=== PATIENT | female | born 1955 | race Caucasian/White ===

== ENCOUNTER 2018-04-21 15:31 | Emergency (ER) | payer OTHER ==
[2018-04-21 15:46] VITALS: BP 163/91
[2018-04-21] MEDS ORDERED: Sodium Chloride 0.9% 10 ML Syringe FLUSH PRN (16:02)
[2018-04-21] MEDS ORDERED: Famotidine 20 MG/2 ML SDV IVPUSH ONE (16:03)
[2018-04-21] MEDS ORDERED: Alum Hydrox/Mag Hydrox/Simeth 30 ML, Lidocaine 2% 15 ML PO ONE ×2 (16:03)
--- NOTE | 2018-04-21 18:37 | EDM.PDOC ---
ED HPI GENERAL MEDICAL PROBLEM - General Chief Complaint: Chest Pain Stated Complaint: CHEST PAIN Time Seen by Provider: 04/21/18 15:42 Source of Information: Reports: Patient History Limitations: Reports: No Limitations - History of Present Illness INITIAL COMMENTS - FREE TEXT/NARRATIVE: The patient presents with burning across her chest. This started at 1330 today. It is better but not quiet gone. She has no shortness of breath. This did happen Saturday but it went away. She has a history of reflux and hiatal hernia. She is on a PPI. She did not miss a dose or eat anything that would have made it worse. She has no history of heart disease. She has high cholesterol. She has no fever, chills, cough, abdominal pain or nausea. Onset: Gradual Duration: Hour(s): Location: Reports: Chest Quality: Reports: Burning Severity: Moderate Improves with: Reports: None Worsens with: Reports: None Associated Symptoms: Reports: Chest Pain. Denies: Fever/Chills, Headaches, Nausea/Vomiting, Shortness of Breath Chest Pain Score (Numeric/FACES): 6 - Related Data Allergies Allergy/AdvReac Type Severity Reaction Status Date / Time No Known Allergies Allergy Verified 04/21/18 15:40 Home Meds: Home Meds Rosuvastatin [Crestor] 10 mg PO BEDTIME 12/21/13 [History] Sertraline HCl 50 mg PO DAILY 12/21/13 [History] Multivitamin/Iron/Folic Acid [Centrum Complete Multivit] 1 tab PO DAILY [History] Ubidecarenone [Coq-10] 200 mg PO DAILY 02/04/15 [History] Aspirin [Adult Low Dose Aspirin EC] 81 mg PO DAILY 04/21/18 [History] Calcium Carbonate/Vitamin D3 [Caltrate 600 Plus D3 Tablet] 1 tab PO DAILY [History] Cholecalciferol (Vitamin D3) [Vitamin D3] 1,000 units PO DAILY 04/21/18 [History ] Pantoprazole Sodium 40 mg PO DAILY 04/21/18 [History] Past Medical History Cardiovascular History: Reports: High Cholesterol Gastrointestinal History: Reports: GERD - Past Surgical History Other HEENT Surgeries/Procedures: septoplasty Social & Family History - Tobacco Use Smoking Status *Q: Current Every Day Smoker Years of Tobacco use: 40 Packs/Tins Daily: 1 - Recreational Drug Use Recreational Drug Use: No ED ROS GENERAL - Review of Systems Review Of Systems: See Below Constitutional: Reports: No Symptoms HEENT: Reports: No Symptoms Respiratory: Reports: No Symptoms Cardiovascular: Reports: Chest Pain (Burning accross his chest) Endocrine: Reports: No Symptoms GI/Abdominal: Reports: No Symptoms : Reports: No Symptoms Musculoskeletal: Reports: No Symptoms ED EXAM, GENERAL - Physical Exam Exam: See Below Exam Limited By: No Limitations General Appearance: Alert, No Apparent Distress Ears: Normal External Exam Nose: Normal Inspection Head: Atraumatic, Normocephalic Neck: Normal Inspection Respiratory/Chest: No Respiratory Distress, Lungs Clear, Normal Breath Sounds Cardiovascular: Regular Rate, Rhythm, No Edema, No Murmur GI/Abdominal: Soft, Non-Tender, No Organomegaly, No Mass Back Exam: Normal Inspection Extremities: Normal Inspection Neurological: Alert, Oriented, No Motor/Sensory Deficits EKG INTERPRETATION EKG Date: 04/21/18 Time: 15:39 Rhythm: NSR Rate (Beats/Min): 96 [place]: Normal P-Wave: Present QRS: Normal ST-T: Normal QT: Normal Course - Vital Signs Last Recorded V/S: Last Vital Signs Temp 97.6 F 04/21/18 15:40 Pulse 94 04/21/18 15:40 Resp BP 163/91 H 04/21/18 15:40 Pulse Ox 96 04/21/18 15:40 - Orders/Labs/Meds Orders: Active Orders 24 hr Category Date Time Status Cardiac Monitoring [RC] . DIRECTED Care 04/21/18 16:02 Active EKG Documentation Completion [RC] STAT Care 04/21/18 16:03 Active Peripheral IV Care [RC] . DIRECTED Care 04/21/18 16:03 Active Chest 1V Frontal [CR] Stat Exams 04/21/18 16:03 Taken TROPONIN I [CHEM] Stat Lab 04/21/18 18:21 Ordered Sodium Chloride 0.9% [Saline Flush] Med 04/21/18 16:02 Active 10 ml FLUSH ASDIRECTED PRN Peripheral IV Insertion Adult [OM.PC] Stat Oth 04/21/18 16:02 Ordered Medication Orders Sodium Chloride (Saline Flush) 10 ml FLUSH ASDIRECTED PRN PRN Reason: Keep Vein Open Last Admin: 04/21/18 16:14 Dose: 10 ml Labs: Laboratory Tests 04/21/18 04/21/18 Range/Units 15:45 15:45 WBC 9.72 (3.98-10.04) K/mm3 RBC 5.08 (3.98-5.22) M/mm3 Hgb 14.5 (11.2-15.7) gm/L Hct 43.7 (34.1-44.9) % MCV 86.0 (79.4-94.8) fl MCH 28.5 (25.6-32.2) pg MCHC 33.2 (32.2-35.5) g/dl RDW Std Deviation 43.9 (36.4-46.3) fL Plt Count 266 (182-369) K/mm3 MPV 10.4 (9.4-12.3) fl Neut % (Auto) 64.4 (34.0-71.1) % Lymph % (Auto) 25.1 (19.3-51.7) % [place] % (Auto) 9.6 (4.7-12.5) % Eos % (Auto) 0.5 L (0.7-5.8) Baso % (Auto) 0.2 (0.1-1.2) % Neut # (Auto) 6.26 H (1.56-6.13) K/mm3 Lymph # (Auto) 2.44 (1.18-3.74) K/mm3 [place] # (Auto) 0.93 H (0.24-0.36) K/mm3 Eos # (Auto) 0.05 (0.04-0.36) K/mm3 Baso # (Auto) 0.02 (0.01-0.08) K/mm3 Sodium 143 (136-145) mEq/L Potassium 3.5 (3.5-5.1) mEq/L Chloride 105 (98-107) mEq/L Carbon Dioxide 24 (21-32) mEq/L Anion Gap 17.5 H (5-15) BUN 11 (7-18) mg/dL Creatinine 0.7 (0.55-1.02) mg/dL Est Cr Clr Drug Dosing 61.27 mL/min Estimated GFR (MDRD) > 60 (>60) mL/min BUN/Creatinine Ratio 15.7 (14-18) Glucose 98 (80-115) mg/dL Calcium 9.8 (8.5-10.1) mg/dL Total Bilirubin 0.3 (0.2-1.0) mg/dL AST 19 (15-37) U/L ALT 22 (14-59) U/L Alkaline Phosphatase 85 (46-116) U/L Troponin I < 0.017 (0.00-0.056) ng/mL Total Protein 8.1 (6.4-8.2) g/dl Albumin 4.2 (3.4-5.0) g/dl Globulin 3.9 gm/dL Albumin/Globulin Ratio 1.1 (1-2) Meds: Medications Generic Name Dose Route Start Last Admin Trade Name Freq PRN Reason Stop Dose Admin Sodium Chloride 10 ml 04/21/18 16:02 04/21/18 16:14 Saline Flush FLUSH 10 ml ASDIRECTED PRN Administration Keep Vein Open Discontinued Medications Generic Name Dose Route Start Last Admin Trade Name Freq PRN Reason Stop Dose Admin Al Hydroxide/Mg Hydroxide 30 0 ml 04/21/18 16:03 04/21/18 16:13 ml/ Lidocaine HCl 15 ml PO 04/21/18 16:04 45 ml ONETIME ONE Administration Famotidine 20 mg 04/21/18 16:03 04/21/18 16:14 Pepcid IVPUSH 04/21/18 16:04 20 mg ONETIME ONE Administration - Re-Assessments/Exams Free Text/Narrative Re-Assessment/Exam: 04/21/18 18:38 I ordered an IV saline lock, pepcid 20mg IV, GI cocktail, EKG, CXR and labs. Her EKG shows a NSR with no acute changes. Her CXR looks good. Her CBC and CMP look good. Her troponin is negative. She feels much better. I will have her take some pepcid for a few days. I am doing a repeat troponin. Departure - Departure Time of Disposition: 18:40 Disposition: Home, Self-Care 01 Condition: Good Clinical Impression: Atypical chest pain GERD (gastroesophageal reflux disease) Qualifiers: Esophagitis presence: without esophagitis Qualified Code(s): K21.9 - Gastro- esophageal reflux disease without esophagitis Referrals: PCP,Unknown [Primary Care Provider] - Additional Instructions: Take pepcid daily for 1 week. Continue taking your other medications. Try the maalox if you have more discomfort. It that does not help, please return. - My Orders Last 24 Hours: My Active Orders 04/21/18 16:02 Cardiac Monitoring [RC] . DIRECTED Sodium Chloride 0.9% [Saline Flush] 10 ml FLUSH ASDIRECTED PRN Peripheral IV Insertion Adult [OM.PC] Stat 04/21/18 16:03 EKG Documentation Completion [RC] STAT Peripheral IV Care [RC] . DIRECTED Chest 1V Frontal [CR] Stat 04/21/18 18:21 TROPONIN I [CHEM] Stat - Assessment/Plan Last 24 Hours: My Active Orders 04/21/18 16:02 Cardiac Monitoring [RC] . DIRECTED Sodium Chloride 0.9% [Saline Flush] 10 ml FLUSH ASDIRECTED PRN Peripheral IV Insertion Adult [OM.PC] Stat 04/21/18 16:03 EKG Documentation Completion [RC] STAT Peripheral IV Care [RC] . DIRECTED Chest 1V Frontal [CR] Stat 04/21/18 18:21 TROPONIN I [CHEM] Stat
--- NOTE | 2018-04-23 06:52 | CR ---
Chest: Portable view of the chest was obtained. Comparison: No prior chest x-ray. Heart size appears within normal limits for portable technique. Tortuous thoracic aorta is seen. Lungs are clear without acute parenchymal change. Scoliosis and degenerative change noted within the spine. Impression: 1. Findings as noted above. Nothing acute is appreciated. Diagnostic code #2
== END 2018-04-21 18:50 | disposition home or self-care (01) ==
LOC: JD.ED 15:31
DX: K21.9 Gastro-esophageal reflux disease without esophagitis (principal); F17.210 Nicotine dependence, cigarettes, uncomplicated; Z79.899 Other long term (current) drug therapy
CPT/HCPCS: 36415; 71045; 71045-26; 80053; 84484; 85025; 93005; 96374; 99285-25; A9270-GY; J3490; J7050

== ENCOUNTER 2020-01-22 07:06 | Day surgery (SDC) | payer MEDICARE, BC ==
[~2020-01-22 07:06] MED LIST: Lactated Ringers 1,000 ML IV SCH; Lidocaine 1%/Sod Bicarbonate in NS 8.4% 1 ML Syringe IDERM PRN; Sodium Chloride 0.9% 10 ML Syringe FLUSH PRN
[2020-01-22] MEDS ORDERED: Propofol 200 MG/20 ML SDV ONE ×2 (07:19→09:09)
[2020-01-22] MEDS ORDERED: Lidocaine 1% 4 ML ONE (07:19)
[2020-01-22] MEDS ORDERED: Midazolam 1 MG/ML 2 ML SDV ONE (07:19)
[2020-01-22] MEDS ORDERED: fentaNYL 100 MCG/2 ML SDV ONE (07:19)
--- NOTE | 2020-01-22 07:33 | PCM.PREANE ---
Preanesthetic Assessment - Procedure Proposed Procedure: egd colonoscopy - Anesthesia/Transfusion/Family Hx Anesthesia History: Prior Anesthesia Without Reaction Family History of Anesthesia Reaction: No Transfusion History: No Prior Transfusion(s) - Review of Systems General: No Symptoms (after prep), Weakness Pulmonary: No Symptoms Cardiovascular: No Symptoms Gastrointestinal: No Symptoms Neurological: No Symptoms Other: Reports: Depression, Anxiety - Physical Assessment NPO Status Date: 01/21/20 NPO Status Time: 23:55 Vital Signs: 156/90 88 96% 20 97.6 Height: 5 ft 1 in Weight: 53 kg ASA Class: 2 Mental Status: Alert & Oriented x3 Airway Class: Mallampati = 1 Dentition: Reports: Normal Dentition Thyro-Mental Finger Breadths: 3 Mouth Opening Finger Breadths: 3 ROM/Head Extension: Full Lungs: Clear to Auscultation, Normal Respiratory Effort Cardiovascular: Regular Rate, Regular Rhythm - Lab Values: Laboratory Last Values SARS Virus RNA (PCR) Negative (NEGATIVE) 01/19/20 09:33 - Allergies Allergies/Adverse Reactions: Allergies Allergy/AdvReac Type Severity Reaction Status Date / Time No Known Allergies Allergy Verified 01/21/20 12:32 - Blood Blood Available: No - Acknowledgements Anesthesia Type Planned: MAC Pt an Appropriate Candidate for the Planned Anesthesia: Yes Alternatives and Risks of Anesthesia Discussed w Pt/Guardian: Yes Pt/Guardian Understands and Agrees with Anesthesia Plan: Yes PreAnesthesia Questionnaire Cardiovascular History: Reports: High Cholesterol Gastrointestinal History: Reports: GERD Musculoskeletal History: Reports: Osteoporosis Oncologic (Cancer) History: Reports: Basal Cell Carcinoma - Past Surgical History HEENT Surgical History: Reports: Naso-Sinus Surgery, Tonsillectomy GI Surgical History: Reports: Colonoscopy, EGD Musculoskeletal Surgical History: Reports: Hip Replacement Dermatological Surgical History: Reports: Skin Biopsy - SUBSTANCE USE Smoking Status *Q: Current Every Day Smoker Tobacco Use Within Last Twelve Months: Cigarettes Second Hand Smoke Exposure: Yes Days Per Week of Alcohol Use: 0 Recreational Drug Use History: No - HOME MEDS Home Medications: Home Meds Rosuvastatin [Crestor] 10 mg PO BEDTIME 12/21/13 [History] Sertraline HCl 50 mg PO DAILY 12/21/13 [History] Multivitamin/Iron/Folic Acid [Centrum Complete Multivit] 1 tab PO DAILY [History] Ubidecarenone [Coq-10] 200 mg PO DAILY 02/04/15 [History] Aspirin [Adult Low Dose Aspirin EC] 81 mg PO DAILY 04/21/18 [History] Calcium Carbonate/Vitamin D3 [Caltrate 600 Plus D3 Tablet] 1 tab PO DAILY [History] Cholecalciferol (Vitamin D3) [Vitamin D3] 1,000 units PO DAILY 04/21/18 [History ] Pantoprazole Sodium 40 mg PO DAILY 04/21/18 [History] - CURRENT (IN HOUSE) MEDS Current Meds: Current Medications Lactated Ringer's (Ringers, Lactated) 1,000 mls @ 125 mls/hr IV ASDIRECTED LEN Stop: 01/22/20 23:00 Lidocaine/Sodium Bicarbonate (Buffered Lidocaine 1% In Ns 8.4%) 0.25 ml IDERM ONETIME PRN PRN Reason: Prior to IV Start Stop: 01/22/20 18:00 Sodium Chloride (Saline Flush) 10 ml FLUSH ASDIRECTED PRN PRN Reason: Keep Vein Open Stop: 01/22/20 18:00 Discontinued Medications Fentanyl (Sublimaze) Confirm Administered Dose 100 mcg .ROUTE .STK-MED ONE Stop: 01/22/20 07:20 Lidocaine HCl (Xylocaine-Mpf 1%) Confirm Administered Dose 4 mls @ as directed .ROUTE .STK-MED ONE Stop: 01/22/20 07:20 Midazolam HCl (Versed 1 Mg/Ml) Confirm Administered Dose 2 mg .ROUTE .STK-MED ONE Stop: 01/22/20 07:20 Propofol (Diprivan 20 Ml) Confirm Administered Dose 400 mg .ROUTE .STK-MED ONE Stop: 01/22/20 07:20
[2020-01-22] MEDS ORDERED: Albuterol 0.083% 2.5 MG/3 ML Neb Soln NEB ONE (07:34)
--- NOTE | 2020-01-22 09:51 | PCM48HPAN ---
Post Anesthesia Note - EVALUATION WITHIN 48HRS OF ANESTHETIC Vital Signs in Normal Range: Yes Patient Participated in Evaluation: Yes Respiratory Function Stable: Yes Airway Patent: Yes Cardiovascular Function Stable: Yes Hydration Status Stable: Yes Pain Control Satisfactory: Yes Nausea and Vomiting Control Satisfactory: Yes Mental Status Recovered: Yes Vital Signs: Last Vital Signs Temp 97.6 F 01/22/20 07:10 Pulse 88 01/22/20 07:10 Resp 20 01/22/20 07:10 BP 156/90 H 01/22/20 07:10 Pulse Ox 97 01/22/20 07:45 0945 102/64 96% with oxygen 58 14 97.2
--- NOTE | 2020-01-22 10:32 | PCM.PRNOTE ---
- Free Text/Narrative Note: Date: 01/22/2020 Procedure: diagnostic esophagogastroduodenoscopy, screening colonoscopy Indications: history of GERD, colon polyps Endoscopist: Corey Starr MD Findings: scant, scattered blood within stomach noted upon entry. Duodenum, stomach appeared grossly normal. No evidence of hiatal hernia on retroflexion. Fibrinous exudate noted at distal esophagus circumferentially. Three small polyps biopsied during colonoscopy. Prep was fair. Detailed Report: The patient was taken to the GI suite and placed in left lateral decubitus position. Time out was performed and monitored anesthesia care initiated. A bite block was placed and the endoscope was inserted orally. On entry into the stomach, scant, scattered blood was noted. The duodenum was intubated and appeared normal. The gastric mucosa appeared normal throughout; a sample biopsy of the antrum was obtained. No hernia or ulceration was noted on retroflexion within the stomach. There was a ring of white fibrinous exudate about 2 cm in length lining the distal-most portion of the esophagus. A biopsy was obtained of this area as well as the normal-appearing mucosa just proximal. The Z-line was not well visualized. There was no erythema or gross metaplasia noted. The remainder of the esophagus appeared normal. Next, attention was turned to colonoscopy. There was a small skin tag anteriorly at the anal verge. There was a palpable extra-rectal anterior mass on digital exam that, after conferring with Drs. Walter and Jose, [employer], felt like normal gynecologic anatomy/ uterus. The colonoscope was inserted anally and advanced to the ileocecal valve. This was moderately challenging due to redundancy. There was diverticular disease throughout the colon. Prep was fair. On slow withdrawal of the scope, mucosal surfaces were carefully inspected. Three small polyps were identified within the distal half of the colon, and these were biopsied with fulguration of the tissue bases. No abnormality noted within the rectum on retroflexion. Air was evacuated prior to complete removal of the scope. The patient tolerated the procedure well. Corey Starr MD [facility]
[2020-01-22 13:06] VITALS: BP 137/73; PULSE 65
== END 2020-01-22 11:59 | disposition home or self-care (01) ==
LOC: JD.SDS 07:06
PROVIDERS: ATTEND Surgery
DX: D12.3 Benign neoplasm of transverse colon (principal); K29.50 Unspecified chronic gastritis without bleeding; K21.0 Gastro-esophageal reflux disease with esophagitis; K64.4 Residual hemorrhoidal skin tags; K57.30 Diverticulosis of large intestine without perforation or abscess without bleeding; E78.00 Pure hypercholesterolemia, unspecified; F17.210 Nicotine dependence, cigarettes, uncomplicated; Z11.59 Encounter for screening for other viral diseases; Z86.010 Personal history of colon polyps; Z79.82 Long term (current) use of aspirin; Z79.899 Other long term (current) drug therapy
CPT/HCPCS: 43239; 45380; 88305; 94640; J2001; J2250; J2704; J3010; J7120; U0002; 00813

== ENCOUNTER 2023-05-15 09:02 | Day surgery (SDC) | payer MEDICARE, BC ==
[~2023-05-15 09:02] MED LIST changes: -Lidocaine 1%/Sod Bicarbonate in NS 8.4% 1 ML Syringe IDERM PRN; +Morphine 8 MG, EPINEPHrine 0.3 MG, Cefuroxime 750 MG, Ketorolac 30 MG, Sodium Chloride ... PRN; +Sodium Chloride 0.9% 10 ML Syringe FLUSH SCH
[2023-05-15] MEDS ORDERED: fentaNYL 100 MCG/2 ML SDV ONE (09:37)
[2023-05-15] MEDS ORDERED: ceFAZolin 2 GM Vial ONE (09:37)
[2023-05-15] MEDS ORDERED: Midazolam 1 MG/ML 2 ML SDV ONE (09:37)
[2023-05-15] MEDS ORDERED: Lactated Ringers 1,000 ML ONE (09:37)
[2023-05-15] MEDS ORDERED: Propofol 200 MG/20 ML SDV ONE (09:37)
[2023-05-15] MEDS ORDERED: Tranexamic Acid 1,000 MG/10 ML Vial ONE (09:48)
[2023-05-15] MEDS ORDERED: Vancomycin 1 GM SDV ONE (09:48)
[2023-05-15] MEDS ORDERED: Albuterol 0.083% 2.5 MG/3 ML Neb Soln NEB SCH (11:35)
[2023-05-15] MEDS ORDERED: Albuterol 0.083% 2.5 MG/3 ML Neb Soln ONE (11:35)
[2023-05-15] MEDS ORDERED: ePHEDrine 50 MG/ML SDV ONE (12:19)
[2023-05-15] MEDS ORDERED: Ondansetron 4 MG/2 ML SDV IVPUSH PRN (12:42)
[2023-05-15] MEDS ORDERED: fentaNYL 100 MCG/2 ML SDV IVPUSH PRN (12:42)
[2023-05-15] MEDS ORDERED: HYDROmorphone 0.5 MG/0.5 ML Syringe IVPUSH PRN (12:42)
[2023-05-15] MEDS ORDERED: Ketorolac 15 MG/ML SDV ONE (12:51)
[2023-05-15] MEDS ORDERED: Ondansetron 4 MG/2 ML SDV ONE (12:51)
[2023-05-15] MEDS ORDERED: oxyCODONE 5 MG Tab PO PRN (15:15)
[2023-05-15 15:51] VITALS: BP 122/61; PULSE 75
== END 2023-05-15 16:40 | disposition home or self-care (01) ==
LOC: JD.SDS 09:02
PROVIDERS: ATTEND Orthopaedic Surgery
DX: M16.11 Unilateral primary osteoarthritis, right hip (principal); S46.911A Strain of unspecified muscle, fascia and tendon at shoulder and upper arm level, right arm, initial encounter; F41.9 Anxiety disorder, unspecified; R30.0 Dysuria; F17.210 Nicotine dependence, cigarettes, uncomplicated; K21.9 Gastro-esophageal reflux disease without esophagitis; I10 Essential (primary) hypertension; E78.00 Pure hypercholesterolemia, unspecified; E78.5 Hyperlipidemia, unspecified; R91.1 Solitary pulmonary nodule; M81.0 Age-related osteoporosis without current pathological fracture; L82.1 Other seborrheic keratosis; Z88.8 Allergy status to other drugs, medicaments and biological substances; Z79.82 Long term (current) use of aspirin; Z79.899 Other long term (current) drug therapy; Z90.89 Acquired absence of other organs; Z98.890 Other specified postprocedural states
CPT/HCPCS: 01214; 36415; 73501-26-RT; 73501-RT; 86850; 86900; 86901; 97116-GP; 97161-GP; C1713; C1776; J0171; J0690; J0697; J1885; J2250; J2270; J2405; J2704; J3010; J3370; J3490; J7030; J7120

== ENCOUNTER 2023-11-21 12:05 | Day surgery (SDC) | payer MEDICARE, BC ==
[2023-11-21 12:18] VITALS: PULSE 63
[2023-11-21] MEDS: Polymyxin B/Trimethoprim 10 ML Bottle EYELF SCH (13:07)
[2023-11-21] MEDS: Brimonidine 0.2% Ophth Soln 5 ML Bottle EYELF SCH (13:12)
[2023-11-21] MEDS: Phenylephrine 2.5% Ophth Soln 2 ML Bot EYELF SCH (13:17)
[2023-11-21] MEDS: Tropicamide 1% Ophth Soln 3 ML Bottle EYELF SCH (13:22)
[2023-11-21] MEDS: Tetracaine HCl/PF 0.5% 4 ML Bottle EYEBOTH SCH (13:54)
[2023-11-21] MEDS: Lidocaine 1% PF 2 ML SDV INJECT SCH (14:13)
[2023-11-21] MEDS: Cefuroxime 10 MG/ML SYRINGE EYELF SCH (14:26)
[2023-11-21] MEDS: Pilocarpine 4% Ophth Soln 15 ML Bot EYELF SCH (14:26)
[2023-11-21 14:42] VITALS: BP 151/72
== END 2023-11-21 14:38 | disposition home or self-care (01) ==
LOC: JD.SDS 12:05
PROVIDERS: ATTEND Ophthalmology
DX: H25.813 Combined forms of age-related cataract, bilateral (principal); H40.013 Open angle with borderline findings, low risk, bilateral; H43.813 Vitreous degeneration, bilateral; H16.103 Unspecified superficial keratitis, bilateral; H16.223 Keratoconjunctivitis sicca, not specified as Sjogren's, bilateral; I10 Essential (primary) hypertension; E78.2 Mixed hyperlipidemia; Z79.899 Other long term (current) drug therapy
CPT/HCPCS: A9270-GY; J0697; J3490

== ENCOUNTER 2023-12-19 11:45 | Day surgery (SDC) | payer MEDICARE, BC ==
[2023-12-19] MEDS: Polymyxin B/Trimethoprim 10 ML Bottle EYERT SCH (11:52)
[2023-12-19] MEDS: Brimonidine 0.2% Ophth Soln 5 ML Bottle EYERT SCH (11:56)
[2023-12-19] MEDS: Phenylephrine 2.5% Ophth Soln 2 ML Bot EYERT SCH (12:00)
[2023-12-19] MEDS: Tropicamide 1% Ophth Soln 3 ML Bottle EYERT SCH (12:05)
[2023-12-19] MEDS: Tetracaine HCl/PF 0.5% 4 ML Bottle EYEBOTH SCH (12:47)
[2023-12-19] MEDS: Lidocaine 1% PF 2 ML SDV INJECT SCH (13:09)
[2023-12-19] MEDS: Cefuroxime 10 MG/ML SYRINGE EYERT SCH (13:19)
[2023-12-19] MEDS: Pilocarpine 4% Ophth Soln 15 ML Bot EYERT SCH (13:20)
[2023-12-19 13:32] VITALS: BP 150/101; PULSE 71
== END 2023-12-19 13:25 | disposition home or self-care (01) ==
LOC: JD.SDS 11:45
PROVIDERS: ATTEND Ophthalmology
DX: H25.811 Combined forms of age-related cataract, right eye (principal); H40.013 Open angle with borderline findings, low risk, bilateral; H16.103 Unspecified superficial keratitis, bilateral; H16.223 Keratoconjunctivitis sicca, not specified as Sjogren's, bilateral; I10 Essential (primary) hypertension; F17.210 Nicotine dependence, cigarettes, uncomplicated; E78.00 Pure hypercholesterolemia, unspecified; Z79.899 Other long term (current) drug therapy; Z98.890 Other specified postprocedural states; Z96.1 Presence of intraocular lens
CPT/HCPCS: 66984; A9270; J0697; 00142; J3490; V2788-GY